=== PATIENT | female | born 2000 | race Caucasian/White ===

== ENCOUNTER 2019-08-14 11:04 | Emergency (ER) | payer BC ==
[~2019-08-14] VITALS: Ht 165.1 cm; Wt 58.0 kg
[2019-08-14 11:17] VITALS: BP 134/65
--- NOTE | 2019-08-14 12:03 | PHYS DOC ---
Past History Past Medical History: No Pertinent History Past Surgical History: No Surgical History Alcohol Use: Occasionally General Adult EDM: Chief Complaint: SHOULDER INJURY HPI: HPI: Patient is a 19 F presented with left elbow pain for about a month. Patient denied any injury. Patient lifted heavy box at work. The pain is worse with range of motion of left elbow, no swelling. Review of Systems: Review of Systems: Constitutional: Denies fever or chills Eyes: Denies change in visual acuity HENT: Denies nasal congestion or sore throat Respiratory: Denies cough or shortness of breath Cardiovascular: Denies chest pain or edema GI: Denies abdominal pain, nausea, vomiting, bloody stools or diarrhea : Denies dysuria Musculoskeletal: left elbow pain Integument: Denies rash Neurologic: Denies headache, focal weakness or sensory changes Endocrine: Denies polyuria or polydipsia Lymphatic: Denies swollen glands Psychiatric: Denies depression or anxiety Heart Score: Risk Factors: Risk Factors: DM, Current or recent (<one month) smoker, HTN, HLP, family history of CAD, obesity. Risk Scores: Score 0 - 3: 2.5% MACE over next 6 weeks - Discharge Home Score 4 - 6: 20.3% MACE over next 6 weeks - Admit for Clinical Observation Score 7 - 10: 72.7% MACE over next 6 weeks - Early Invasive Strategies Allergies: Allergies: Allergies Coded Allergies Type Severity Reaction Last Updated Verified No Known Drug Allergies 08/14/19 No Physical Exam: PE: Constitutional: Well developed, well nourished, no acute distress, non-toxic appearance. [] HENT: Normocephalic, atraumatic, bilateral external ears normal, oropharynx moist, no oral exudates, nose normal. [] Eyes: PERRLA, EOMI, conjunctiva normal, no discharge. [] Neck: Normal range of motion, no tenderness, supple, no stridor. [] Cardiovascular:Heart rate regular rhythm, no murmur [] Lungs & Thorax: Bilateral breath sounds clear to auscultation [] Abdomen: Bowel sounds normal, soft, no tenderness, no masses, no pulsatile masses. [] Skin: Warm, dry, no erythema, no rash. [] Back: No tenderness, no CVA tenderness. [] Extremities: left elbow is tender to palpation along the bicep tendon attachement area, no swelling. GOOD DISTAL RADIAL PULSE, PATIENT CAN MOVE ALL FINGERS WITHOUT ANY PROBLEM. Neurologic: Alert and oriented X 3, normal motor function, normal sensory function, no focal deficits noted. [] Psychologic: Affect normal, judgement normal, mood normal. [] Current Patient Data: Vital Signs: Vital Signs Date Time Temp Pulse Resp B/P (MAP) Pulse Ox O2 Delivery O2 Flow Rate FiO2 08/14/19 11:17 97.8 73 16 134/65 (88) 99 Room Air EKG: EKG: [] Radiology/Procedures: Radiology/Procedures: [][address] [address] IMAGING REPORT Signed PATIENT: KASIA LUCAS ACCOUNT: [id number] : 2000 LOCATION: ER AGE: 19 SEX: F EXAM STATUS: REG ER ORD. PHYSICIAN: BINH STANFORD DO REASON: left elbow pain PROCEDURE: ELBOW LEFT 3V ELBOW LEFT 3V History: Reason: left elbow pain / Spl. Instructions: / History: Technique: 3 views left elbow. Comparison: None. Findings: Normal alignment. No fracture. No significant elbow joint effusion. Impression: 1. No acute osseous abnormality. Electronically signed by: Ezequiel Velez DO (08/14/2019 12:07 PM) [id number] DICTATED AND SIGNED BY: EZEQUIEL VELEZ DO DATE: 08/14/19 1207 CC: JLUIS DESIR; BINH STANFORD DO ~ Course & Med Decision Making: Course & Med Decision Making Pertinent Labs and Imaging studies reviewed. (See chart for details) [] Dragon Disclaimer: Dragon Disclaimer: This electronic medical record was generated, in whole or in part, using a voice recognition dictation system. Departure Departure: Impression: Primary Impression: Elbow pain, left Additional Impression: Muscle strain Disposition: 01 HOME/RESIDENCE PRIOR TO ADM Condition: STABLE Referrals: PCPJLUIS (PCP) please follow up with your doctor next week for further evaluation Patient Instructions: Muscle Strain BINH STANFORD DO August 14, 2019 12:03
--- NOTE | 2019-08-14 12:10 | RAD ---
ELBOW LEFT 3V History: Reason: left elbow pain / Spl. Instructions: / History: Technique: 3 views left elbow. Comparison: None. Findings: Normal alignment. No fracture. No significant elbow joint effusion. Impression: 1. No acute osseous abnormality. Electronically signed by: Ezequiel Velez DO (08/14/2019 12:07 PM) [id number]
== END 2019-08-14 12:22 | disposition home or self-care (01) ==
LOC: ER 11:04
DX: S46.812A Strain of other muscles, fascia and tendons at shoulder and upper arm level, left arm, initial encounter (principal); X50.9XXA Other and unspecified overexertion or strenuous movements or postures, initial encounter; Y93.89 Activity, other specified; Y92.89 Other specified places as the place of occurrence of the external cause; Y99.8 Other external cause status
CPT/HCPCS: 73080; 99283

== ENCOUNTER 2019-10-13 10:45 | Emergency (ER) | payer BC ==
[~2019-10-13] VITALS: Ht 165.1 cm; Wt 59.2 kg
[2019-10-13 11:09] VITALS: BP 107/57
[2019-10-13] MEDS ORDERED: CEPH-264 PO (11:26)
--- NOTE | 2019-10-13 11:26 | PHYS DOC ---
Past History Past Medical History: No Pertinent History Past Surgical History: No Surgical History Alcohol Use: Occasionally General Adult EDM: Chief Complaint: LACERATION/AVULSION HPI: HPI: 19-year-old female presents with laceration of the left forehead. She fell in the shower last night and hit her head on a soap dispenser as she fell. She attempted to put a butterfly Band-Aid over it and slept through the night. This morning it was still oozing and open back up. She decided she might need stitches or some other form of closure. She rinsed it out at home. It has been more than 12 hours since the injury. She denies any other injuries. Denies fever or chills. Review of Systems: Review of Systems: Constitutional: Denies fever or chills Eyes: Denies change in visual acuity HENT: Denies nasal congestion or sore throat Respiratory: Denies cough or shortness of breath Cardiovascular: Denies chest pain or edema GI: Denies abdominal pain, nausea, vomiting, bloody stools or diarrhea : Denies dysuria Musculoskeletal: Denies back pain or joint pain Integument: Laceration forehead Neurologic: Denies headache, focal weakness or sensory changes Endocrine: Denies polyuria or polydipsia Lymphatic: Denies swollen glands Psychiatric: Denies depression or anxiety Heart Score: Risk Factors: Risk Factors: DM, Current or recent (<one month) smoker, HTN, HLP, family history of CAD, obesity. Risk Scores: Score 0 - 3: 2.5% MACE over next 6 weeks - Discharge Home Score 4 - 6: 20.3% MACE over next 6 weeks - Admit for Clinical Observation Score 7 - 10: 72.7% MACE over next 6 weeks - Early Invasive Strategies Allergies: Allergies: Allergies Coded Allergies Type Severity Reaction Last Updated Verified No Known Drug Allergies 08/14/19 No Physical Exam: PE: Constitutional: Well developed, well nourished, no acute distress, non-toxic appearance. [] HENT: Normocephalic, atraumatic, bilateral external ears normal, oropharynx moist, no oral exudates, nose normal. [] Eyes: PERRLA, EOMI, conjunctiva normal, no discharge. [] Neck: Normal range of motion, no tenderness, supple, no stridor. [] Cardiovascular:Heart rate regular rhythm, no murmur [] Lungs & Thorax: Bilateral breath sounds clear to auscultation [] Abdomen: Bowel sounds normal, soft, no tenderness, no masses, no pulsatile masses. [] Skin: 1 cm laceration of the left forehead [] Back: No tenderness, no CVA tenderness. [] Extremities: No tenderness, no cyanosis, no clubbing, ROM intact, no edema. [] Neurologic: Alert and oriented X 3, normal motor function, normal sensory functi on, no focal deficits noted. [] Psychologic: Affect normal, judgement normal, mood normal. [] Current Patient Data: Vital Signs: Vital Signs Date Time Temp Pulse Resp B/P (MAP) Pulse Ox O2 Delivery O2 Flow Rate FiO2 10/13/19 11:09 97.8 73 14 107/57 (74) 99 Room Air EKG: EKG: [] Radiology/Procedures: Radiology/Procedures: [] Course & Med Decision Making: Course & Med Decision Making Pertinent Labs and Imaging studies reviewed. (See chart for details) The patient had a 1 cm laceration that I was able to repair with skin adhesive. See note below for more details. I will give her Keflex for 5 days prophylaxis due to the delay in wound closure. She is stable for discharge at this time. [] Dragon Disclaimer: Dragon Disclaimer: This electronic medical record was generated, in whole or in part, using a voice recognition dictation system. Laceration Repair Lac Repair Indication: [] 1 cm linear laceration of the forehead Procedure: Verbal consent was obtained from the patient for skin adhesive repair of her laceration. The wound was thoroughly irrigated prior to arrival. No foreign bodies were found on inspection. No anesthesia was used. I repaired the wound with 2 layers of Dermabond skin adhesive. Her tetanus is up-to-date. Total repaired wound length: 1 cm Other Items: None The patient tolerated the procedure well Complications: None Departure Departure: Impression: Primary Impression: Laceration of forehead without complication Qualified Codes: S01.81XA - Laceration without foreign body of other part of head, initial encounter Disposition: 01 HOME/RESIDENCE PRIOR TO ADM Condition: STABLE Referrals: PCP,UNKNOWN (PCP) Patient Instructions: Tissue Adhesive Wound Care, [id number] Scripts Cephalexin (KEFLEX) 500 Mg Capsule 1 CAP PO BID for infection prophylaxis for 5 Days, #10 CAP 0 Refills Prov: SLOANE RIVERA DO 10/13/19 Justification of Admission: Justification of Admission: Justification of Admission Dx: N/A SLOANE RIVERA DO Oct 13, 2019 11:26
[2019-10-13] MEDS: HYDROcodone/APAP 5/325MG 1 TAB TABLET PO ONE (11:34)
== END 2019-10-13 11:34 | disposition home or self-care (01) ==
LOC: ER 10:45
DX: S01.81XA Laceration without foreign body of other part of head, initial encounter (principal); W18.2XXA Fall in (into) shower or empty bathtub, initial encounter; Y93.89 Activity, other specified; Y92.89 Other specified places as the place of occurrence of the external cause; Y99.8 Other external cause status
CPT/HCPCS: 12011; 99283

== ENCOUNTER 2020-05-18 01:10 | Emergency (ER) | payer BC ==
[~2020-05-18] VITALS: Ht 165.1 cm; Wt 59.2 kg
[~2020-05-18 01:10] MED LIST: CEPH-264 PO
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
--- NOTE | 2020-05-18 01:36 | EKG ---
[facility] ED [facility] [address] [place] [id number] Test Date: 2020-05-18 Test Time: 01:24:53 Pat Name: KASIA LUCAS Department: Room: Gender: F Space Scheduler: DEBBIE : 2000 Requested By: AVRIL KILLIAN Order Number: [id number] Reading MD: Measurements Intervals [place] Rate: 81 P: 34 DC: 130 QRS: 69 QRSD: 88 T: 40 QT: 368 QTc: 428 Interpretive Statements SINUS RHYTHM S1,S2,S3 PATTERN OTHERWISE NORMAL ECG RI6.02 No previous ECG available for comparison
[2020-05-18] MEDS ORDERED: IV RINGERS SOLUTION,LACTATED 1,000 ML IV SCH (01:45)
[2020-05-18 02:04] LABS: BASO # 0.1 x10^3/uL (0.0-0.2); BASO % 1 % (0-3); EOS # 0.1 x10^3/uL (0.0-0.7); EOS % 1 % (0-3); HEMATOCRIT 42.9 % (36.0-47.0); LYMPH # 1.8 x10^3/uL (1.0-4.8); LYMPH % 15 % (24-48); MEAN CORPUSCULAR HEMOGLOBIN 31 pg (25-35); MEAN CORPUSCULAR HGB CONC 33 g/dL (31-37); MEAN CORPUSCULAR VOLUME 95 fL (79-100); MONO # 0.6 x10^3/uL (0.0-1.1); MONO % 5 % (0-9); NEUT # 9.1 x10^3uL (1.8-7.7); NEUT % 79 % (31-73); PLATELET COUNT 104 x10^3/uL (140-400); RED BLOOD COUNT 4.52 x10^6/uL (3.50-5.40); RED CELL DISTRIBUTION WIDTH 14.7 % (11.5-14.5); WHITE BLOOD COUNT 11.6 x10^3/uL (4.0-11.0)
[2020-05-18 02:11] VITALS: BP 147/81
[2020-05-18 02:15] LABS: CREATININE 1.2 mg/dL (0.6-1.0); GFR 56.7
[2020-05-18 02:16] LABS: CLARITY,URINE CLEAR; COLOR,URINE YELLOW
[2020-05-18 02:17] LABS: BACTERIA,URINE 0 /HPF (0-FEW); BARBITURATES NEG (NEG); BENZODIAZEPINES POS (NEG); BILIRUBIN,URINE NEG (NEG); CANNABINOIDS POS (NEG); COCAINE NEG (NEG); GLUCOSE,URINE NEG (NEG); METHADONE NEG (NEG); NITRITE,URINE NEG (NEG); OPIATES POS (NEG); PHENCYCLIDINE NEG (NEG); RBC,URINE 0 /HPF (0-2); SQUAMOUS EPITHELIAL CELL,UR MOD /LPF; UROBILINOGEN,URINE 0.2 mg/dL (0.2 mg/dL); WBC,URINE OCC /HPF (0-4)
[2020-05-18 02:18] LABS: AMPHETAMINE/METHAMPHETAMINE NEG (NEG)
[2020-05-18 02:27] LABS: ALBUMIN 4.1 g/dL (3.4-5.0); DIRECT BILIRUBIN 0.1 mg/dL (0.0-0.2); TOTAL BILIRUBIN 0.3 mg/dL (0.2-1.0); TOTAL PROTEIN 7.3 g/dL (6.4-8.2)
== END 2020-05-18 02:15 | disposition home or self-care (01) ==
LOC: ER 01:10
DX: G40.909 Epilepsy, unspecified, not intractable, without status epilepticus (principal); R51.9 Headache, unspecified; F41.9 Anxiety disorder, unspecified; F10.10 Alcohol abuse, uncomplicated
CPT/HCPCS: 36415; 80048; 80076; 80307; 81001; 82550; 83690; 83735; 83880; 84443; 84484; 84702; 85025; 85610; 85730; 93005; 99284; G0480

== ENCOUNTER 2020-06-26 14:56 | Emergency (ER) | payer BC ==
[~2020-06-26] VITALS: Ht 165.1 cm; Wt 69.2 kg
[2020-06-26 15:00] VITALS: BP 116/63
--- NOTE | 2020-06-26 16:30 | RAD ---
Exam: Right lower extremity venous duplex study INDICATION: Leg swelling TECHNIQUE: Using a combination of real-time ultrasound imaging and color-flow and pulse Doppler imagi ng techniques along with graded compression and augmentation, duplex evaluation of the deep venous sy stems of rightlower extremity was performed. Multiple images were obtained. Findings: There is no sonographic evidence for deep venous thrombosis involving the visualized deep venous stru ctures of the right lower extremity. IMPRESSION: No acute DVT in the right lower extremities. Electronically signed by: Klaudia Hummel MD (06/26/2020 4:28 PM) PARISA
[2020-06-26 16:44] LABS: BASO % 1 % (0-3); EOS # 0.1 x10^3/uL (0.0-0.7); EOS % 2 % (0-3); LYMPH # 1.4 x10^3/uL (1.0-4.8); LYMPH % 28 % (24-48); MEAN CORPUSCULAR HEMOGLOBIN 31 pg (25-35); MEAN CORPUSCULAR HGB CONC 33 g/dL (31-37); MEAN CORPUSCULAR VOLUME 93 fL (79-100); MONO # 0.4 x10^3/uL (0.0-1.1); MONO % 8 % (0-9); NEUT % 61 % (31-73); PLATELET COUNT 207 x10^3/uL (140-400); RED BLOOD COUNT 4.53 x10^6/uL (3.50-5.40); RED CELL DISTRIBUTION WIDTH 13.9 % (11.5-14.5); WHITE BLOOD COUNT 4.9 x10^3/uL (4.0-11.0)
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
[2020-06-26 17:51] LABS: CALCIUM 9.2 mg/dL (8.5-10.1); CREATININE 0.8 mg/dL (0.6-1.0); GFR 90.5; POTASSIUM 3.8 mmol/L (3.5-5.1)
== END 2020-06-26 17:13 | disposition home or self-care (01) ==
LOC: ER 14:56
DX: R22.41 Localized swelling, mass and lump, right lower limb (principal); F10.20 Alcohol dependence, uncomplicated; F41.9 Anxiety disorder, unspecified; Y90.9 Presence of alcohol in blood, level not specified
CPT/HCPCS: 36415; 80048; 85025; 93971; 99284